=== PATIENT | male | born 1980 | race Caucasian/White ===

== ENCOUNTER 2020-07-28 15:45 | Emergency (ER) | payer SELFPAY ==
[2020-07-28 15:55] VITALS: BP 144/94; PULSE 73; RESP 16; TEMP 36.9; O2SAT 99
[2020-07-28 16:29] LABS: Basophils Percent Auto 0.4 % (0.2-1.2); Eosinophils Absolute Auto 0.1 K/mm3 (0-0.3); Eosinophils Percent Auto 1.3 % (0-4.4); Hematocrit 44.4 % (42.0-52.0); Hemoglobin 15.4 g/dL (14.0-18.0); Immature Granulocyte Absolute 0.04 K/mm3 (0.00-0.031); Immature Granulocyte Percent A 0.4 % (0-0.5); Lymphocytes Percent Auto 25.3 % (18.3-44.2); Mean Corpuscular HGB Conc 34.7 g/dl (32-36); Mean Corpuscular Hemoglobin 32.8 pg (26-34); Mean Corpuscular Volume 94.7 fl (80-100); Mean Platelet Volume 9.2 fl (7.4-10.4); Monocytes Absolute Auto 0.7 K/mm3 (0.1-0.6); Monocytes Percent Auto 7.1 % (2.6-8.5); Neutrophils Absolute Auto 6.5 K/mm3 (1.3-6.7); Neutrophils Percent Auto 65.5 % (45.5-73.1); Platelet Count Result 361 k/mm3 (150-375); Red Blood Count 4.69 M/mm3 (4.6-6.20); Red Cell Distribution Width 12.4 % (11.5-14.5); White Blood Count 9.9 K/mm3 (4.5-10.0)
[2020-07-28 16:41] LABS: Alanine Aminotransferase 51 U/L (4-50); Albumin Level 4.7 g/dL (3.5-5.1); Alkaline Phosphatase 81 U/L (38-126); Anion Gap 9 mmol/L (8-16); Aspartate Amino Transferase 40 U/L (17-59); Bilirubin,Total 0.6 mg/dL (0.2-1.3); Blood Urea Nitrogen 11 mg/dL (9-20); Calcium 9.5 mg/dL (8.4-10.2); Carbon Dioxide 30 mmol/L (22-30); Chloride 102 mmol/L (98-107); Estimated CRCL calculation 115 ml/min; Estimated Glomerular Filt Rate > 60; Glucose 103 mg/dL (75-110); Potassium 4.7 mmol/L (3.4-5.0); Sodium 141 mmol/L (137-145)
--- NOTE | 2020-07-28 20:00 | PC.NURSE ---
Patient's named called multiple times in waiting room at 1945 to be taken back to ED room. No answer. ED charge nurse Sonam forte.
== END 2020-07-28 22:29 | disposition left against medical advice (07) ==
PROVIDERS: Emergency Provider Emergency Medicine; PCP Family Medicine
DX: M54.2 Cervicalgia (principal)
CPT/HCPCS: 36415; 80053; 85025; 99199

== ENCOUNTER 2021-09-18 11:25 | Emergency (ER) | payer OTHER, SELFPAY ==
[2021-09-18 11:41] VITALS: BP 148/87; PULSE 79; RESP 18; TEMP 37.6; O2SAT 97
--- NOTE | 2021-09-18 12:37 | ED.WOUNDLAC ---
HPI - Wound/Laceration General Chief Complaint: Wound/Laceration Stated Complaint: knot on lower right hip Time Seen by Provider: 09/18/21 12:39 Source: patient, RN notes reviewed and old records reviewed Mode of arrival: ambulatory Limitations: no limitations History of Present Illness HPI narrative: 41-year-old male who presents to [place] [facility] care with complaints of a red painful firm knot on his right buttock which started yesterday. Patient has red 2cm diameter firm knot on the right buttock which is tender, small 0.5cm scabbed area noted to center of tissue, no induration of tissue noted, no acute warmth to tissue. Patient denies any fevers, chills or sweats. Onset (ago): day(s) (1) Related Data Allergies Allergy/AdvReac Type Severity Reaction Status Date / Time No Known Allergies Allergy Mild Verified 09/18/21 11:41 Review of Systems Review of Systems: CONSTITUTIONAL: Denies fever, chills, or sweats. EYES: Denies visual changes, redness, or discharge. ENT: Denies rhinorrhea, congestion, sore throat, or otalgia. CARDIOVASCULAR: Denies chest pain, palpitations, or edema. RESPIRATORY: Denies cough or dyspnea. GASTROINTESTINAL: Denies abdominal pain, nausea, vomiting, or diarrhea. GENITOURINARY: Denies dysuria or hematuria. SKIN: firm tender red raised knot on right buttock MUSCULOSKELETAL: Denies back pain, joint pain, or myalgia. NEUROLOGIC: Denies headache, numbness, or weakness. PSYCHIATRIC: Denies anxiety or depression. All systems reviewed & are unremarkable except as noted in HPI and below PMFSH Past Medical History Medical History (Updated 09/19/21 @ 14:41 by Melina Rojas NP) Hemiplegic migraine Surgical History Surgical History (Updated 09/19/21 @ 14:42 by Melina Rojas NP) History of tonsillectomy Family History Family History Father Hypertension Family history of diabetes mellitus in first degree relative Other Diabetes mellitus Social History Social History (Updated 09/19/21 @ 14:51 by Melina Rojas NP) Smoking status: Smoker, status unknown Alcohol intake: current Substance use: unknown Gender identity (if verbalized by the patient): Male Comments At time of signature, agree with nursing past medical, surgical, social and family history. There is no relevant family history pertinent to the presenting complaint Exam Narrative: GENERAL: Well-appearing, well-nourished, and in no acute distress. HEAD: Normocephalic, atraumatic. EYES: PERRLA and EOMI. ENT: Nares clear, no rhinorrhea or epistaxis. Mucous membranes moist.TM's normal with good light reflex, throat pink with no lesions or exudates, tonsils absent NECK: Supple.no lymphadenopathy CHEST: Clear to auscultation. No respiratory distress.SAO2 97% on room air HEART: Regular rate and rhythm. No murmur heard. Normal peripheral pulses. ABDOMEN: Soft, nontender, nondistended, normal active bowel sounds. EXTREMITIES: Normal range of motion. No edema. SKIN: Warm, dry,2cm red firm knot on right buttock with center 0.5cm scab noted, no acute warm, is tender to palpation with no induration of tissue noted. NEURO: No focal deficits. Alert and oriented x3. Course Course Level of Care: Express Care Visit Vital Signs Vital signs: Vital Signs Temperature 37.6 C 09/18/21 11:41 Pulse Rate 79 09/18/21 11:41 Respiratory Rate 18 09/18/21 11:41 Blood Pressure 148/87 H 09/18/21 11:41 Pulse Oximetry 97 09/18/21 11:41 Temperature 37.6 C 09/18/21 11:41 Pulse Rate 79 09/18/21 11:41 Respiratory Rate 18 09/18/21 11:41 Blood Pressure 148/87 H 09/18/21 11:41 Pulse Oximetry 97 09/18/21 11:41 MDM - Wound/Laceration Differential Diagnosis Differential diagnosis: Likely abscess and other (cellulitis right buttock, painful wound right buttock) Medical Records Attestation: I reviewed the patient's medical records. Critical Care Time Critical Car
== END 2021-09-18 13:00 | disposition home or self-care (01) ==
PROVIDERS: Emergency Provider Registered Nurse; PCP Family Medicine
DX: L02.31 Cutaneous abscess of buttock (principal)
CPT/HCPCS: 99213; G0463